=== PATIENT | male | born 2000 | race Caucasian/White ===

== ENCOUNTER 2020-02-23 15:41 | Outpatient (REF) | payer MEDICAID, SELFPAY | END 2020-02-23 15:42 | disposition home or self-care (01) | LOC: HO.LAB 15:41 | PROVIDERS: Visit Provider Internal Medicine | DX: Z20.828 Contact with and (suspected) exposure to other viral communicable diseases (principal) | CPT/HCPCS: 36415; C9803; U0003 ==

== ENCOUNTER 2022-08-27 | Outpatient (REF) | payer MEDICAID, SELFPAY | END 2022-08-27 00:01 | disposition home or self-care (01) | LOC: HO.HHCL | PROVIDERS: Visit Provider Internal Medicine | DX: R30.0 Dysuria (principal) | CPT/HCPCS: 87086 ==

== ENCOUNTER 2022-08-28 15:53 | Outpatient (REF) | payer MEDICAID, SELFPAY ==
[2022-08-29 02:26] LABS: Syphilis Screen Nonreactive (Nonreactive)
[2022-08-29 03:23] LABS: HIV AB/AG Nonreactive (Nonreactive); HIV Num 1 0.08 S/CO (0.00-0.99)
[2022-08-29 12:22] LABS: CT PCR NOT DETECTED (Not Detect.); NG PCR DETECTED (Not Detect.)
== END 2022-08-28 15:54 | disposition home or self-care (01) ==
LOC: HO.HHCL 15:53
PROVIDERS: Visit Provider Internal Medicine
DX: Z11.4 Encounter for screening for human immunodeficiency virus [HIV] (principal); R30.0 Dysuria
CPT/HCPCS: 0353U; 86780; 87389

== ENCOUNTER 2022-09-17 12:23 | Outpatient (REF) | payer MEDICAID, SELFPAY ==
[2022-09-20 12:43] LABS: C. trachomatis RNA TMA NOT DETECTED (NOT DETECTED); N. gonorrhoeae RNA TMA DETECTED (NOT DETECTED)
== END 2022-09-17 12:24 | disposition home or self-care (01) ==
LOC: HO.LNP 12:23
PROVIDERS: Visit Provider Family Medicine
DX: R36.9 Urethral discharge, unspecified (principal)
CPT/HCPCS: 87070; 87077; 87147; 87185; 87205; 87491; 87591

== ENCOUNTER 2022-10-12 18:04 | Outpatient (REF) | payer MEDICAID, SELFPAY ==
[2022-10-13 04:56] LABS: CT PCR NOT DETECTED (Not Detect.); NG PCR DETECTED (Not Detect.)
== END 2022-10-12 18:05 | disposition home or self-care (01) ==
LOC: HO.LNP 18:04
PROVIDERS: Visit Provider Registered Nurse
DX: A54.9 Gonococcal infection, unspecified (principal)
CPT/HCPCS: 0353U; 87070; 87077; 87185; 87186; 87205